=== PATIENT | female | born 1990 | race Caucasian/White ===

== ENCOUNTER → 2016-05-07 | Outpatient (CLI) | payer OTHER ==
[~2016-05-07] MED LIST: BCPILLS PO; DICL50TA3 PO; IBUP-1449 PO; METH4PAK PO; MULT-222 PO; SERT50TA PO
--- NOTE | 2016-05-07 13:06 | DIAGNOSTIC IMAGING REPORT ---
RIGHT LOWER EXTREMITY VENOUS DOPPLER CLINICAL HISTORY: Right leg pain. COMPARISON STUDY: No previous studies for comparison. TECHNIQUE: Sonography of the deep venous system of the right lower extremity was performed. Compression and augmentation were evaluated. FINDINGS: The common femoral, superficial femoral and popliteal veins were compressible. Augmentation was normal. Flow was shown within the deep calf vessels. IMPRESSION: No evidence of deep venous thrombus within the right lower extremity. Electronically signed by: Teo Palmer M.D. 05/07/2016 1:04 PM Dictated Date/Time: 05/07/2016 1:04 PM
--- NOTE | 2016-05-10 15:12 | CODING QUERY NO DIAGNOSIS ---
TREATMENT RENDERED WITHOUT A DIAGNOSIS To promote full compliance with coding requirements relating to patient care, physician participation is requested in all cases of compressor battery pellets uncertainty. Please assist us with providing a diagnosis/symptom for the test(s) below: A diagnosis/symptom was not documented on your Order. A valid diagnosis/symptom is required to bill all insurances. Please remember that we are unable to code a diagnosis of rule out, probable, possible, questionable, or suspected. Tests that require a diagnosis: DOS: 05/07/16 * RIGHT LEG DOPPLER US DIAGNOSIS: Provider Signature: Date: Thank you [facility] Information Management Once completed, please kindly fax back to [phone] For questions please call [phone]
== END | disposition home or self-care (01) ==
LOC: C.ULTR 12:26
PROVIDERS: ATTEND Preventive Medicine Occupational Medicine
DX: Z01.89 Encounter for other specified special examinations (principal)

== ENCOUNTER 2016-08-18 16:12 | Emergency (ER) | payer OTHER ==
[~2016-08-18] VITALS: Ht 165.1 cm; Wt 71.6 kg
[~2016-08-18 16:12] MED LIST changes: -BCPILLS PO; -DICL50TA3 PO; -METH4PAK PO
[2016-08-18 16:14] VITALS: TEMP 36.8; Ht 165.1 cm; Wt 71.6 kg
[2016-08-18] MEDS ORDERED: DICL50TA3 PO (16:37)
[2016-08-18] MEDS ORDERED: BCPILLS PO (16:38)
[2016-08-18] MEDS ORDERED: METH4PAK PO (17:13)
[2016-08-18 17:22] VITALS: BP 131/80; PULSE 72; O2SAT 98
--- NOTE | 2016-08-18 20:40 | EMERGENCY ROOM VISIT NOTE ---
History First contact with patient: 16:42 Chief Complaint: BACK PAIN Stated Complaint: BULGING DISC,NUMBNESS RT LEG,RT HIP PAIN,WC History of Present Illness The patient is a 26 year old female who presents to the Emergency Room with complaints of persistent lower back pain radiating down the right leg to her foot. The patient reports that she sustained a Worker's Compensation injury on 05/06/16. She has been under the management of Dr. Knox, [facility] and Dr. Marquis. The patient reports that she had an appointment scheduled with the pain clinic on 08/14, but was rescheduled for 08/28. She also had an appointment scheduled with Dr. Marquis 05/06. The patient reports that she had an independent medical evaluation (RACHEL) performed with Dr. Almeida as part of her Worker's Compensation evaluation. The patient reports that her case was closed on 08/11/16, and she was directed back to work for full duty without any restrictions. The patient reports progressively worsening symptoms at this point, and was told by her admitted attorneys to come to the emergency department. The patient and MRI performed at the time of injury. The patient denies any interval significant trauma to the back. She currently denies any right lower extremity weakness, foot drop, saddle anesthesias or bladder/bowel difficulties/ incontinence. She rates her discomfort a 6 out of 10. Review of Systems 10 system review was performed and was negative except for pertinent positives and negatives as indicated in history of present illness Past Medical/Surgical History Medical Problems: (1) Bleeding (2) Bronchitis (3) Headache in (4) History of urinary tract problem (5) possible rupture of membranes (6) spontaneous rupture of membranes at term (7) Stomach problems Surgical Problems: (1) H/O colonoscopy (2) History of wisdom tooth extraction Family History Cancer Heart disease Hypertension Kidney disease Kidney stones Social History Smoking Status: Never Smoker Alcohol Use: none Drug Use: none Marital Status: in relationship Occupation Status: employed Current/Historical Medications Scheduled Control Pills ( Control Pills), 1 TAB PO DAILY Diclofenac (Voltaren), 50 MG PO Q12 Methylprednisolone (Medrol Dosepak), 0 PO DAILY Allergies Coded Allergies: No Known Allergies (Unverified , 02/03/16) Physical Exam Vital Signs Date Time Temp Pulse Resp B/P Pulse Ox O2 Delivery O2 Flow Rate FiO2 08/18/16 17:22 72 18 131/80 98 Room Air 08/18/16 16:14 36.8 82 18 143/98 98 Room Air Pain Rating (0-10): 6.0 Physical Exam CONSTITUTIONAL: Healthy and well nourished. Alert and oriented X 3 with positive affect. Patient does not appear in any acute distress on exam. HEENT: Normocephalic, atraumatic. Pupils equal, round and reactive. NECK: Full active range of motion without discomfort. RESPIRATORY: Clear to auscultation bilaterally with no wheezing, crackles, rhonchi or stridor. CARDIOVASCULAR: Regular rate and rhythm with no murmurs, rubs or gallops. GASTROINTESTINAL: Bowel sounds present in all quadrants. Soft and nontender to palpation. MUSCULOSKELETAL: Examination shows tenderness to palpation through the right lower lumbar region, SI joint and sciatic notch. Negative logroll. Positive straight leg raise. Ankle plantar/dorsiflexion strength is 5 out of 5 and symmetric bilaterally. Pedal pulses are intact. INTEGUMENTARY: No rash or other significant dermatologic conditions noted. NEUROLOGIC: No focal neurologic deficits noted. Lower extremity deep tendon reflexes are 2+ and symmetric bilaterally. Medical Decision & Procedures ED Course Patient history and physical exam were performed. Nurse's notes were reviewed. I did review prior medical records, including the patient's office notes at the pain clinic on 07/22/16. On that visit, it was suggested that the patient undergo an L5-S1 intralaminar epidural steroid injection. As indicated in the history of present illness, she was scheduled this month for that injection. She also reports that Dr. Marquis was going to wait to see how she responded to the injection. Also as indicated in history of present illness, the patient was sent back to work without restrictions as a result of her RACHEL on 08/04/16. After explaining her difficulties with her admitted attorneys, she was sent to the emergency department. The patient is requesting another note for light duty. The patient was advised that I do not have any power to override her Worker's Compensation decision. I did try to call Dr. Knox, the patient's primary Worker's Compensation provider. He was not in the office today, nor was his nurse practitioner, Sarita Lees. I did leave a message for her to call the patient regarding further details of her RCAHEL, and other possible options for her case. I suspect the patient will have to work through her admitted attorneys to figure this out. In the meantime, the patient was provided a prescription for a Medrol Dosepak. The patient is currently taking Voltaren 50 mg twice a day, but reports that it gives her headaches. She is able to tolerate ibuprofen, and was therefore encouraged to alternate ibuprofen and Tylenol for pain. She refused any prescription analgesics. The patient was advised that she may need to follow-up with her PCP, pain clinic and Dr. Marquis until her Worker's Compensation situation is figured out. The patient voiced understanding of all discharge instructions, was happy with plan of care, and rated her discomfort a 4 out of 10 at the time of discharge. Impression Primary Impression: Lumbar pain Additional Impression: Work related injury Departure Information Dispostion Home / Self-Care Condition GOOD Prescriptions Methylprednisolone (MEDROL DOSEPAK) 4 Mg Yanick 0 PO DAILY, #1 PKT Prov: Chevy Banda PA 08/18/16 Referrals Jc Knox M.D. Forms HOME CARE DOCUMENTATION FORM, IMPORTANT VISIT INFORMATION Patient Instructions My [facility] [employer] Additional Instructions Ibuprofen 800 mg and/or Tylenol 1000 mg every 8 hours. You may also alternate these medications for more effective pain relief: Ibuprofen --4 HRS--> Tylenol --4 HRS--> ibuprofen --4 HRS--> Tylenol .... Stop the diclofenac for now. Take Medrol Dosepak as prescribed. Continue follow-up with your family doctor, pain clinic and Dr. Marquis until your admitted attorneys further evaluates your case. Problem Qualifiers Primary Impression: Lumbar pain Chronicity: chronic Back pain laterality: right Sciatica presence: with sciatica Sciatica laterality: sciatica of right side Qualified Codes: M54.41 - Lumbago with sciatica, right side; G89.29 - Other chronic pain
== END 2016-08-18 17:23 | disposition home or self-care (01) ==
LOC: C.EDB 16:16 → C.EDD 17:23
DX: M54.5 Low back pain (principal); Y99.0 Civilian activity done for income or pay; Z87.440 Personal history of urinary (tract) infections; Z87.19 Personal history of other diseases of the digestive system; Z79.899 Other long term (current) drug therapy

== ENCOUNTER 2017-02-08 11:44 | Emergency (ER) | payer OTHER ==
[~2017-02-08] VITALS: Ht 165.1 cm; Wt 68.7 kg
[~2017-02-08 11:44] MED LIST changes: +BCPILLS PO; +DICL50TA3 PO; -IBUP-1449 PO; -MULT-222 PO; -SERT50TA PO
[2017-02-08 11:46] VITALS: TEMP 36.9; Ht 165.1 cm; Wt 68.7 kg
[2017-02-08 12:47] LABS: URINE APPEARANCE CLOUDY (CLEAR); URINE BILIRUBIN NEG (NEG); URINE COLOR DK YELLOW; URINE EPITHELIAL CELL AUTO >30 /lpf (0-5); URINE NITRITE NEG (NEG); URINE PH 5.5 (4.5-7.5); URINE SPECIFIC GRAVITY 1.029 (1.000-1.030); UROBILINOGEN NEG (NEG); ZZUR CULT IF INDIC CLEAN CATCH YES
[2017-02-08 12:48] LABS: BASO % 0.3 %; BASO ABS # 0.02 K/uL (0-0.2); COMPLETE YES; HEMATOCRIT 38.5 % (37-47); IG% 0.3 %; LYMPH % 15.2 %; LYMPH ABS # 1.18 K/uL (1.2-3.4); MEAN CELL VOLUME 88.9 fL (80-100); MEAN CORPUSCULAR HEMOGLOBIN 29.8 pg (25-34); MEAN CORPUSCULAR HGB CONC 33.5 g/dl (32-36); MEAN PLATELET VOLUME 10.2 fL (7.4-10.4); NEUT % 68.2 %; PLATELET COUNT 217 K/uL (130-400); RED BLOOD COUNT 4.33 M/uL (4.2-5.4); WHITE BLOOD COUNT 7.76 K/uL (4.8-10.8)
[2017-02-08 12:51] LABS: PREG INTERNAL NEGATIVE QC NEG CLEAR BACKGROUND; PREG INTERNAL POSITIVE QC POS CONTROL LINE
[2017-02-08 12:52] LABS: MANUAL MICROSCOPIC REQUIRED? NO; REVIEW REQ? NO
[2017-02-08 13:07] LABS: BUN/CREATININE RATIO 12.9 (10-20); CALCIUM 8.9 mg/dl (8.5-10.1); CREATININE 0.78 mg/dl (0.60-1.20); POTASSIUM 3.2 mmol/L (3.5-5.1)
[2017-02-08] MEDS ORDERED: KETOROLAC TROMETHAMINE 30 MG/ML VIAL IV STA (13:08)
[2017-02-08 13:09] LABS: ALB/GLOB RATIO 0.9 (0.9-2)
--- NOTE | 2017-02-08 13:34 | DIAGNOSTIC IMAGING REPORT ---
ABDOMEN LIMITED (US) HISTORY: Pain. Nausea. upper abdominal pain (RUQ, LUQ). COMPARISON: None. FINDINGS: Pancreas: The pancreas demonstrates a normal echotexture. Liver: Unremarkable. Gallbladder: No gallbladder wall thickening. No gallstones. CBD: 4 mm Right kidney: No hydronephrosis. IMPRESSION: No significant abnormality identified within the within the right upper quadrant. The above report was generated using voice recognition software. It may contain grammatical, syntax or spelling errors. Electronically signed by: Steven Driscoll M.D. 02/08/2017 1:33 PM Dictated Date/Time: 02/08/2017 1:32 PM
--- NOTE | 2017-02-08 14:39 | EMERGENCY ROOM VISIT NOTE ---
History First contact with patient: 11:52 Chief Complaint: ILLNESS Stated Complaint: ENLARGED SPLEEN POSSIBLY MONO History of Present Illness The patient is a 27 year old female who presents to the Emergency Room with complaints of an enlarged spleen and possible mono. The patient was seen by urgent care earlier today and was advised that she had an enlarged spleen and liver on exam. While her mono test was negative, the examiner did suspect mono , as the patient has also had a sore throat, hoarseness of her voice, difficulty swallowing, and lymphadenopathy. The patient's boyfriend became concerned and encouraged the patient to be seen in the emergency department for further evaluation due to her symptoms. She is experiencing significant pain on the left side of her abdomen, worse with walking. She states the pain began yesterday, and has been worsening since. She did try DayQuil at one point due to the sore throat, however did not notice any improvement in her symptoms. The patient has not taken any anti-inflammatory or pain medication. She does feel that her abdomen is distended and hard. She denies any fever, chills, nausea, vomiting, otalgia, sinus congestion, headache, dyspnea, chest pain, cough, or other concerning symptoms. Review of Systems A complete 10 point review of systems was reviewed with the patient with pertinent positives and negatives as per history of present illness. All else were negative. Past Medical/Surgical History Medical Problems: (1) Bleeding (2) Bronchitis (3) Headache in (4) History of urinary tract problem (5) possible rupture of membranes (6) spontaneous rupture of membranes at term (7) Stomach problems Surgical Problems: (1) H/O colonoscopy (2) History of wisdom tooth extraction Family History Cancer Heart disease Hypertension Kidney disease Kidney stones Social History Smoking Status: Never Smoker Alcohol Use: none Drug Use: none Marital Status: in relationship Occupation Status: employed Current/Historical Medications Scheduled Control Pills ( Control Pills), 1 TAB PO DAILY Physical Exam Vital Signs Date Time Temp Pulse Resp B/P (MAP) Pulse Ox O2 Delivery O2 Flow Rate FiO2 02/08/17 14:49 75 16 118/76 98 02/08/17 13:55 65 16 130/70 98 Room Air 02/08/17 11:46 36.9 90 18 143/89 98 Room Air Physical Exam VITALS: Vitals are noted on the nurse's note and reviewed by myself. Vital signs stable. GENERAL: This is a 27-year-old female, in no acute distress, nondiaphoretic, well-developed well-nourished. SKIN: The skin was without rashes, erythema, edema, or bruising. There is no tenting of the skin. Capillary reflex less than 2 seconds. HEAD: Normocephalic atraumatic. EARS: External auditory canals clear, tympanic membranes pearly aggarwal without erythema or effusion bilaterally. EYES: Pupils equal round and reactive to light and accommodation. Conjunctivae without injection, sclerae without icterus. Extraocular movements intact. NOSE: Patent, turbinates without inflammation or discharge. No sinus tenderness. MOUTH: Mucous membranes moist. Tonsils are not enlarged. Pharynx with mild erythema and exudate. Uvula midline. Airway patent. Tongue does not deviate. NECK: Supple without nuchal rigidity. Cervical lymphadenopathy noted bilaterally in anterior and posterior chains. No thyromegaly. Cervical spine is nontender. No JVD. HEART: Regular rate and rhythm without murmurs gallops or rubs. LUNGS: Clear to auscultation bilaterally without wheezes, rales or rhonchi. No dullness to percussion. No retractions or accessory muscle use. ABDOMEN: Positive bowel sounds x 4. Normal tympanic percussion. There is tenderness and fullness of the left upper quadrant. The spleen does appear to be slightly enlarged on examination. Otherwise, the abdomen was soft, nontender , without masses or other organomegaly. Ochoa sign negative. No guarding or rebound tenderness. MUSCULOSKELETAL: No muscle atrophy, erythema, or edema noted. Full range of motion without joint tenderness in all extremities. No tenderness to palpation. Normal gait. Strength 5/5 throughout. NEURO: Patient was alert and oriented to person place and time. Normal sensation to light and sharp touch. Deep tendon reflexes 2+ throughout. No focal neurological deficits. Medical Decision & Procedures ER Provider Diagnostic Interpretation: CBC without leukocytosis, anemia, thrombocytopenia. CMP did show slightly decreased potassium of 3.2. Otherwise electrolytes were without abnormality. Renal and hepatic function appeared to be normal. Lipase was negative. Urinalysis does appear to be contaminated, however there were white blood cells , leuk esterase, ketones, and trace protein. I do suspect this is related to the patient's overall illness and slight dehydration. [place] screen was negative. Rapid strep screen was negative. U/S Limited: ABDOMEN LIMITED (US) HISTORY: Pain. Nausea. upper abdominal pain (RUQ, LUQ). COMPARISON: None. FINDINGS: Pancreas: The pancreas demonstrates a normal echotexture. Liver: Unremarkable. Gallbladder: No gallbladder wall thickening. No gallstones. CBD: 4 mm Right kidney: No hydronephrosis. IMPRESSION: No significant abnormality identified within the within the right upper quadrant. The above report was generated using voice recognition software. It may contain grammatical, syntax or spelling errors. Electronically signed by: Steven Driscoll M.D. 02/08/2017 1:33 PM Dictated Date/Time: 02/08/2017 1:32 PM *I did speak with Dr. Driscoll on the phone regarding the spleen. He states the spleen is 12 centimeters and prominent, however does not appear to be significantly enlarged or concerning. Laboratory Results 02/08/17 12:20 Red Blood Count 4.33, Mean Corpuscular Volume 88.9, Mean Corpuscular Hemoglobin 29.8, Mean Corpuscular Hemoglobin Concent 33.5, Mean Platelet Volume 10.2, Neutrophils (%) (Auto) 68.2, Lymphocytes (%) (Auto) 15.2, Monocytes (%) (Auto) 16.0, Eosinophils (%) (Auto) 0.0, Basophils (%) (Auto) 0.3, Neutrophils # (Auto ) 5.30, Lymphocytes # (Auto) 1.18, Monocytes # (Auto) 1.24, Eosinophils # (Auto ) 0.00, Basophils # (Auto) 0.02 02/08/17 12:20 Test 02/08/17 12:03 02/08/17 12:20 Urine Test NEG (NEG) White Blood Count 7.76 K/uL (4.8-10.8) Red Blood Count 4.33 M/uL (4.2-5.4) Hemoglobin 12.9 g/dL (12.0-16.0) Hematocrit 38.5 % (37-47) Mean Corpuscular Volume 88.9 fL (80-100) Mean Corpuscular Hemoglobin 29.8 pg (25-34) Mean Corpuscular Hemoglobin Concent 33.5 g/dl (32-36) Platelet Count 217 K/uL (130-400) Mean Platelet Volume 10.2 fL (7.4-10.4) Neutrophils (%) (Auto) 68.2 % Lymphocytes (%) (Auto) 15.2 % Monocytes (%) (Auto) 16.0 % Eosinophils (%) (Auto) 0.0 % Basophils (%) (Auto) 0.3 % Neutrophils # (Auto) 5.30 K/uL (1.4-6.5) Lymphocytes # (Auto) 1.18 K/uL (1.2-3.4) Monocytes # (Auto) 1.24 K/uL (0.11-0.59) Eosinophils # (Auto) 0.00 K/uL (0-0.5) Basophils # (Auto) 0.02 K/uL (0-0.2) RDW Standard Deviation 40.7 fL (36.4-46.3) RDW Coefficient of Variation 12.6 % (11.5-14.5) Immature Granulocyte % (Auto) 0.3 % Immature Granulocyte # (Auto) 0.02 K/uL (0.00-0.02) Urine Color DK YELLOW Urine Appearance CLOUDY (CLEAR) Urine pH 5.5 (4.5-7.5) Urine Specific [place] 1.029 (1.000-1.030) Urine Protein TRACE (NEG) Urine Glucose (UA) NEG (NEG) Urine Ketones 2+ (NEG) Urine Occult Blood NEG (NEG) Urine Nitrite NEG (NEG) Urine Bilirubin NEG (NEG) Urine Urobilinogen NEG (NEG) Urine Leukocyte Esterase SMALL (NEG) Urine WBC (Auto) 5-10 /hpf (0-5) Urine RBC (Auto) 0-4 /hpf (0-4) Urine Hyaline Casts (Auto) 5-10 /lpf (0-5) Urine Epithelial Cells (Auto) >30 /lpf (0-5) Urine Bacteria (Auto) 1+ (NEG) Anion Gap 5.0 mmol/L (3-11) Est Creatinine Clear Calc Drug Dose 107.4 ml/min Estimated GFR () 122.5 Estimated GFR (Non- 105.7 BUN/Creatinine Ratio 12.9 (10-20) Calcium Level 8.9 mg/dl (8.5-10.1) Total Bilirubin 0.6 mg/dl (0.2-1) Aspartate Amino Transf (AST/SGOT) 10 U/L (15-37) Alanine Aminotransferase (ALT/SGPT) 15 U/L (12-78) Alkaline Phosphatase 56 U/L (45-117) Total Protein 7.2 gm/dl (6.4-8.2) Albumin 3.5 gm/dl (3.4-5.0) Globulin 3.7 gm/dl (2.5-4.0) Albumin/Globulin Ratio 0.9 (0.9-2) Lipase 153 U/L (73-393) Monoscreen NEG (NEG) Medications Administered Medications (Trade) Dose Ordered Sig/Norris Route Start Time Stop Time Status Last Admin Dose Admin Ketorolac Tromethamine (Toradol Inj) 30 mg NOW STAT IV 02/08/17 13:08 02/08/17 13:09 DC 02/08/17 13:53 30 MG Medical Decision The patient presents today complaining of symptoms of mono. She has a sore throat, lymphadenopathy, and abdominal pain. Although her mono screen is negative, I do suspect mononucleosis as the cause of her symptoms. The patient does have an enlarged spleen on examination. Ultrasound does not reveal any concerning abnormalities. She was given 30mg Toradol via IV. I discussed the findings with the patient at bedside, discussed with her proper management of mononucleosis, including supportive care. I advised her that antibiotics do not treat this viral illness. The patient was in agreement with the assessment and plan. She was discharged home in good condition. Differential diagnosis: Mononucleosis, strep pharyngitis, upper respiratory infection, acute gastroenteritis, pancreatitis, cholecystitis, GERD, splenomegaly, splenic rupture, malignancy, and others. Medication Reconcilliation Current Medication List: was personally reviewed by me Blood Pressure Screening Patient's blood pressure: Normal blood pressure Impression Primary Impression: Sore throat Additional Impressions: Splenomegaly Lymphadenopathy of head and neck region Departure Information Dispostion Home / Self-Care Condition GOOD Referrals Tigre Yee M.D. (MEDICAL) (PCP) Patient Instructions ED Mononucleosis, My [facility] Additional Instructions You were seen in the emergency department for sore throat, enlarged lymph nodes , and splenomegaly. As discussed, although your mono screen was negative, it is possible that you have mononucleosis. This is viral in nature, and antibiotics will not treat. You should drink plenty of fluids and stay well-hydrated. You may consider anti -inflammatory medication such as ibuprofen to help with abdominal pain. Ibuprofen(Motrin, Advil) may be used for fever or pain. Use 600mg every six hours as needed. Take with food. Avoid using more than 2400mg in a 24 hour period. Do not use 2400mg per day for more than three consecutive days without physician direction. Prolonged inappropriate use can lead to stomach upset or ulcers. (AND/OR) Acetaminophen(Tylenol) may be used for fever or pain. Use 1000mg every six hours as needed. Avoid using more than 3000mg in a 24 hour period. Please avoid sharing sputum with others. Please avoid physical activity which may worsen your symptoms. Please follow up with your PCP in 2-3 days for recheck and further management of her disease. Return to the emergency department for worsening abdominal pain, bruising, swelling, nausea and vomiting, significant fever, or other concerning symptoms. Problem Qualifiers
[2017-02-08 14:49] VITALS: BP 118/76; PULSE 75; O2SAT 98
== END 2017-02-08 14:49 | disposition home or self-care (01) ==
LOC: C.EDB 11:46 → C.EDA 14:49
DX: J02.9 Acute pharyngitis, unspecified (principal); R16.1 Splenomegaly, not elsewhere classified; R59.1 Generalized enlarged lymph nodes; Z80.9 Family history of malignant neoplasm, unspecified; Z82.49 Family history of ischemic heart disease and other diseases of the circulatory system; Z84.1 Family history of disorders of kidney and ureter; Z79.3 Long term (current) use of hormonal contraceptives

== ENCOUNTER 2017-04-21 21:46 | Emergency (ER) | payer SELFPAY ==
[~2017-04-21] VITALS: Ht 165.1 cm; Wt 67.9 kg
[~2017-04-21 21:46] MED LIST changes: -DICL50TA3 PO
[2017-04-21 22:12] VITALS: TEMP 37.6; Ht 165.1 cm; Wt 67.9 kg
[2017-04-21] MEDS ORDERED: KETOROLAC TROMETHAMINE 30 MG/ML VIAL IV STA (22:56)
[2017-04-21] MEDS ORDERED: ONDANSETRON INJ 2 MG/ML 2 ML VIAL IV STA (22:56)
[2017-04-21] MEDS ORDERED: SODIUM CHLORIDE 0.9% 1000ML 1,000 ML IV STA (22:56)
--- NOTE | 2017-04-21 23:02 | EMERGENCY ROOM VISIT NOTE ---
History Report prepared by Delfina: Ivette Joyce Under the Supervision of: Dr. Turner Zabala M.D. First contact with patient: 22:45 Chief Complaint: ABDOMINAL PAIN Stated Complaint: BACK HURTS, VOMITTING ALL DAY, RIBS CRUSHING History of Present Illness The patient is a 27 year old female who presents to the Emergency Room with complaints of intermittent vomiting beginning this morning. The patient states that she has not been feeling well today and has had nausea and intermittent vomiting all day. She reports that she has not been able to keep anything down. She complains of generalized back pain, headache, shortness of breath with exertion, and squeezing bilateral rib pain. The patient denies any sore throat, diarrhea, urinary symptoms, sick contacts, and chest pain. She notes that her LNMP was last week and she has no history of abdominal surgery or daily medications. Source of History: patient Onset: this morning Position: other (global) Quality: other (vomiting) Timing: intermittent Associated Symptoms: + headache, + SOB, + nausea, + back pain, No sorethroat , No chest pain, No diarrhea, No urinary symptoms Note: Pt complains of rib pain. Review of Systems See HPI for pertinent positives & negatives. A total of 10 systems reviewed and were otherwise negative. Past Medical & Surgical Medical Problems: (1) Bleeding (2) Bronchitis (3) Headache in (4) History of urinary tract problem (5) possible rupture of membranes (6) spontaneous rupture of membranes at term (7) Stomach problems Surgical Problems: (1) H/O colonoscopy (2) History of wisdom tooth extraction Old medical records were reviewed. Nurse's notes were reviewed and I agree with. Family History Cancer Heart disease Hypertension Kidney disease Kidney stones Social History Smoking Status: Never Smoker Alcohol Use: none Drug Use: none Marital Status: in relationship Occupation Status: employed Current/Historical Medications Scheduled Control Pills ( Control Pills), 1 TAB PO DAILY Ondasetron Odt (Zofran Odt), 4 MG SL Q6H Scheduled PRN Oxycodone Immediate Rel Tab (Roxicodone Ir), 1-2 TAB PO Q4H PRN for Severe Pain Allergies Coded Allergies: No Known Allergies (Unverified , 04/21/17) Physical Exam Vital Signs Date Time Temp Pulse Resp B/P (MAP) Pulse Ox O2 Delivery O2 Flow Rate FiO2 04/22/17 02:17 84 20 131/74 99 04/22/17 00:51 91 18 134/78 98 Room Air 04/21/17 22:12 37.6 111 19 124/68 96 Room Air Physical Exam General: Non-ill appearing young female in no acute distress. HEENT: Normal cephalic atraumatic. Pupils are equal round and reactive to light. Extraocular movements are intact. Oropharynx is pink with moist mucous membranes. No swelling of the mouth lips or tongue. Neck: Supple with a midline trachea. No meningeal signs or stiffness, no JVD or bruits. No Stridor. Chest: Clear to auscultation bilaterally. No wheezes or rhonchi. No increased work of breathing. Heart: regular rate and rhythm. Abdomen: Soft, mildly tender in epigastric area, flank bilaterally nondistended without rebound guarding or rigidity. Extremities: No cyanosis clubbing or edema. No calf tenderness or assymetry Spine/Back. Non tender to palpation. No CVA tenderness Skin: Good turgor without rashes. Neurologic exam: Cranial nerves two through 12 are intact. Motor and sensation are intact and symmetrical throughout. Medical Decision & Procedures ER Provider Diagnostic Interpretation: CT results as stated below per my review and radiologist interpretation: CT ABDOMEN & PELVIS w/o Contrast: Nonspecific 6mm subpleural nodule at the lateral left lung base. Appendix is not visualized, but no inflammatory changes to suggest acute appendicitis. No bowel obstruction or inflammation. No renal or ureteral stone. No hydronephrosis in either kidney. Tiny fat-containing umbilical hernia. Decompressed bladder. Small mesenteric lymph nodes are nonspecific but may be reactive. Nonspecific borderline size of the spleen. Radiologist: Giorgi Curtis M.D. Laboratory Results 04/21/17 23:13 Red Blood Count 4.91, Mean Corpuscular Volume 90.6, Mean Corpuscular Hemoglobin 30.8, Mean Corpuscular Hemoglobin Concent 33.9, Mean Platelet Volume 10.4, Neutrophils (%) (Auto) 86.3, Lymphocytes (%) (Auto) 5.4, Monocytes (%) (Auto) 7.3, Eosinophils (%) (Auto) 0.4, Basophils (%) (Auto) 0.2, Neutrophils # (Auto) 7.33, Lymphocytes # (Auto) 0.46, Monocytes # (Auto) 0.62, Eosinophils # (Auto) 0.03, Basophils # (Auto) 0.02 04/21/17 23:13 Test 04/21/17 23:13 04/21/17 23:37 White Blood Count 8.49 K/uL (4.8-10.8) Red Blood Count 4.91 M/uL (4.2-5.4) Hemoglobin 15.1 g/dL (12.0-16.0) Hematocrit 44.5 % (37-47) Mean Corpuscular Volume 90.6 fL (80-100) Mean Corpuscular Hemoglobin 30.8 pg (25-34) Mean Corpuscular Hemoglobin Concent 33.9 g/dl (32-36) Platelet Count 201 K/uL (130-400) Mean Platelet Volume 10.4 fL (7.4-10.4) Neutrophils (%) (Auto) 86.3 % Lymphocytes (%) (Auto) 5.4 % Monocytes (%) (Auto) 7.3 % Eosinophils (%) (Auto) 0.4 % Basophils (%) (Auto) 0.2 % Neutrophils # (Auto) 7.33 K/uL (1.4-6.5) Lymphocytes # (Auto) 0.46 K/uL (1.2-3.4) Monocytes # (Auto) 0.62 K/uL (0.11-0.59) Eosinophils # (Auto) 0.03 K/uL (0-0.5) Basophils # (Auto) 0.02 K/uL (0-0.2) RDW Standard Deviation 41.2 fL (36.4-46.3) RDW Coefficient of Variation 12.3 % (11.5-14.5) Immature Granulocyte % (Auto) 0.4 % Immature Granulocyte # (Auto) 0.03 K/uL (0.00-0.02) Anion Gap 8.0 mmol/L (3-11) Est Creatinine Clear Calc Drug Dose 99.2 ml/min Estimated GFR () 122.5 Estimated GFR (Non- 105.7 BUN/Creatinine Ratio 19.7 (10-20) Calcium Level 8.7 mg/dl (8.5-10.1) Total Bilirubin 0.6 mg/dl (0.2-1) Direct Bilirubin 0.1 mg/dl (0-0.2) Aspartate Amino Transf (AST/SGOT) 10 U/L (15-37) Alanine Aminotransferase (ALT/SGPT) 18 U/L (12-78) Alkaline Phosphatase 66 U/L (45-117) Total Protein 7.3 gm/dl (6.4-8.2) Albumin 3.8 gm/dl (3.4-5.0) Lipase 134 U/L (73-393) Human Chorionic Gonadotropin, Qual NEG (NEG) Urine Color YELLOW Urine Appearance SL CLOUDY (CLEAR) Urine pH 5.5 (4.5-7.5) Urine Specific [place]ridge >= 1.030 (1.000-1.030) Urine Protein NEG (NEG) Urine Glucose (UA) NEG (NEG) Urine Ketones NEG (NEG) Urine Occult Blood NEG (NEG) Urine Nitrite NEG (NEG) Urine Bilirubin NEG (NEG) Urine Urobilinogen NEG (NEG) Urine Leukocyte Esterase NEG (NEG) Laboratory studies as stated above per my review. Medications Administered Medications (Trade) Dose Ordered Sig/Norris Route Start Time Stop Time Status Last Admin Dose Admin Sodium Chloride 1,000 ml @ 999 mls/hr Q1H1M STAT IV 04/21/17 22:56 04/21/17 23:56 DC 04/21/17 23:12 999 MLS/HR Ondansetron HCl (Zofran Inj) 4 mg NOW STAT IV 04/21/17 22:56 04/21/17 22:57 DC 04/21/17 23:11 4 MG Ketorolac Tromethamine (Toradol Inj) 30 mg NOW STAT IV 04/21/17 22:56 04/21/17 22:57 DC 04/21/17 23:12 30 MG Oxycodone HCl (Roxicodone Immediate Rel 5MG Home Pack) 1 homepack UD ONCE PO 04/22/17 02:00 04/22/17 02:01 DC 04/22/17 02:12 1 HOMEPACK Ondansetron HCl (ZOFRAN ODT 4MG Home Pack) 1 homepack UD ONCE PO 04/22/17 02:00 04/22/17 02:01 DC 04/22/17 02:12 1 HOMEPACK ED Course 2245: Past medical records reviewed. The patient was evaluated in room C1, and a complete history and physical examination were performed. 2256: Toradol Inj 30mg IV, Zofran Inj 4mg IV, Sodium Chloride 1000 ml @ 999 mls/ hr IV. 2342: I reevaluated the patient. The Toradol did not relieve her pain. 0158 : Upon reevaluation, the patient is doing well. I discussed the results and treatment plan with her. She verbalized agreement of the treatment plan. The patient was discharged home. Medical Decision Differentials include, but are not limited to; viral illness, gastroenteritis, , liver disease, electrolyte or metabolic abnormality. This patient comes in as described above. She's had some nausea she has a pain in her bilateral upper abdomen and in the back bilaterally as well. No shortness breath or pleurisy. No trauma. No dysuria or hematuria. She denies that she is . IV access established and she was hydrated with IV normal saline. She was given Toradol 30 mg IV as well as Zofran 4 mg IV. This helped the nausea she still had some pain. She's had no white count or fever to suggest infection. She's not anemic. Her test is negative. Urinalysis is unremarkable and does not suggest UTI. She has nothing to suggest liver or gallbladder or pancreas disease. Her kidney function is normal. I did do a CAT scan. It was unremarkable for anything acute she does have some mesenteric adenitis and this could be causing her pain and may be more musculoskeletal or GI related. There is no evidence of bowel obstruction or bacterial infection. She'll rest and drink plenty of fluids. Use ibuprofen and or Tylenol for pain. For breakthrough pain she can use OxyIR 5 mg, one or 2 pills her for 6 hours she is 1 ischemic her drowsy and do not take before drinking, driving, working. For nausea May use Zofran. Return if :increasing pain, worsening of symptoms, fever or chills, any new problems concerns. They' re happy with the plan and she was discharged to home. Medication Reconcilliation Current Medication List: was personally reviewed by me Blood Pressure Screening Patient's blood pressure: Normal blood pressure Blood pressure disposition: Did not require urgent referral Impression Primary Impression: Nausea Additional Impressions: Back pain Mesenteric adenitis Scribe Attestation The scribe's documentation has been prepared under my direction and personally reviewed by me in its entirety. I confirm that the note above accurately reflects all work, treatment, procedures, and medical decision making performed by me. Departure Information Dispostion Home / Self-Care Prescriptions Ondasetron Odt (ZOFRAN ODT) 4 Mg Tab 4 MG SL Q6H for Nausea, #10 TAB Prov: Turner Zabala M.D. 04/22/17 Oxycodone Immediate Rel Tab (ROXICODONE IR) 5 Mg Tab 1-2 TAB PO Q4H Y for Severe Pain, #10 TAB Prov: Turner Zabala M.D. 04/22/17 Referrals Tigre Yee M.D. (MEDICAL) (PCP) Patient Instructions My [facility] Additional Instructions Rest. Drink plenty of fluids. Mild diet. For nausea, May use Zofran 4 mg every 6 hours if needed For pain, may use [id number] acetaminophen/Tylenol and/or ibuprofen. Do not exceed the [id number] dosing regimen For more severe pain, OxyIR 5 mg- 1-2 pills every 4-6 hours as needed OxyIR may make you drowsy and do not take before drinking, driving, working Return if: Increasing pain, worsening symptoms, fever or chills, any new problems or concerns Follow-up with your doctor this week for recheck Problem Qualifiers
[2017-04-21 23:39] LABS: BASO % 0.2 %; BASO ABS # 0.02 K/uL (0-0.2); EOS % 0.4 %; EOS ABS # 0.03 K/uL (0-0.5); HEMATOCRIT 44.5 % (37-47); HEMOGLOBIN 15.1 g/dL (12.0-16.0); IG# 0.03 K/uL (0.00-0.02); LYMPH % 5.4 %; LYMPH ABS # 0.46 K/uL (1.2-3.4); MEAN CELL VOLUME 90.6 fL (80-100); MEAN CORPUSCULAR HEMOGLOBIN 30.8 pg (25-34); MEAN CORPUSCULAR HGB CONC 33.9 g/dl (32-36); MEAN PLATELET VOLUME 10.4 fL (7.4-10.4); MONO % 7.3 %; MONO ABS # 0.62 K/uL (0.11-0.59); NEUT % 86.3 %; NEUT ABS # 7.33 K/uL (1.4-6.5); PLATELET COUNT 201 K/uL (130-400); RED CELL DISTRIBUTION WIDTH CV 12.3 % (11.5-14.5); RED CELL DISTRIBUTION WIDTH SD 41.2 fL (36.4-46.3); WHITE BLOOD COUNT 8.49 K/uL (4.8-10.8)
[2017-04-21 23:57] LABS: ALBUMIN 3.8 gm/dl (3.4-5.0); CALCIUM 8.7 mg/dl (8.5-10.1); CREATININE 0.78 mg/dl (0.60-1.20); POTASSIUM 3.2 mmol/L (3.5-5.1)
[2017-04-22] LABS: TOTAL PROTEIN 7.3 gm/dl (6.4-8.2)
[2017-04-22] MEDS ORDERED: ONDA4TAB10 SL (01:55)
[2017-04-22] MEDS ORDERED: OXYC1TAB3 PO (01:55)
[2017-04-22] MEDS ORDERED: ONDANSETRON HOME PACK 4MG OD TAB PO ONE (02:00)
[2017-04-22] MEDS ORDERED: OXYCODONE IR HOME PACK PO ONE (02:00)
[2017-04-22 02:17] VITALS: BP 131/74; PULSE 84; O2SAT 99
--- NOTE | 2017-04-22 07:37 | DIAGNOSTIC IMAGING REPORT ---
CT SCAN OF THE ABDOMEN AND PELVIS WITHOUT IV CONTRAST CLINICAL HISTORY: Epigastric abdominal pain. Back pain. COMPARISON STUDY: Abdominal ultrasound dated 02/08/2017. TECHNIQUE: CT scan of the abdomen and pelvis is performed from the lung bases to the proximal femora. Images are reviewed in the axial, sagittal, and coronal planes. IV contrast was not administered for this examination as per the referring clinician. Note that the examination was performed in suboptimal fashion without oral and IV contrast. A dose lowering technique was utilized adhering to the principles of ALARA. CT DOSE: 623.42 mGy.cm FINDINGS: Lung bases: The heart is normal in size and without pericardial effusion. A 6 cm left lower lobe nodule is seen on image #53. The lung bases are otherwise clear. Liver: The unenhanced liver is normal in size, contour, and attenuation. There is no intrahepatic biliary ductal dilatation. Gallbladder: Unremarkable. Spleen: The spleen is mildly enlarged, measuring 13.5 cm in length. Pancreas: Unremarkable. Adrenal glands: Unremarkable. Kidneys: The unenhanced kidneys are normal in size and without hydronephrosis. Mild medullary nephrocalcinosis is questioned. There are no renal calculi identified. There is no evidence of contour deforming renal mass lesion. Abdominal vasculature: The abdominal aorta is normal in course and caliber. Bowel: The small bowel and colon are normal in course and caliber. The appendix is normal as visualized. Peritoneum: There is no intraperitoneal free air or abdominal ascites. There is a fat-containing umbilical hernia. Lymphadenopathy: None. Pelvic viscera: The bladder, uterus, and adnexa are normal as visualized. There are bilateral ovarian follicles. Trace free fluid is noted in the cul-de-sac. Skeletal structures: No lytic or blastic lesions are seen. Sclerotic change is noted in the sacroiliac joints. IMPRESSION: 1. There are no acute infectious or inflammatory findings in the abdomen or pelvis. 2. There is trace free fluid in the cul-de-sac, likely within physiologic limits. 3. Mild splenomegaly. 4. Question mild bilateral medullary nephrocalcinosis. 5. A 6 cm left lower lobe pleural-based nodule is of low suspicion and of doubtful significance in this age group. Electronically signed by: Tarik Calles M.D. 04/22/2017 7:35 AM Dictated Date/Time: 04/22/2017 7:26 AM
== END 2017-04-22 02:18 | disposition home or self-care (01) ==
LOC: C.EDB 21:47 → C.EDC 04-22 02:18
DX: R11.2 Nausea with vomiting, unspecified (principal); M54.9 Dorsalgia, unspecified; I88.0 Nonspecific mesenteric lymphadenitis; R06.02 Shortness of breath; Z98.818 Other dental procedure status; Z98.890 Other specified postprocedural states; Z82.49 Family history of ischemic heart disease and other diseases of the circulatory system; Z84.1 Family history of disorders of kidney and ureter

== ENCOUNTER 2017-12-02 01:01 | Emergency (ER) | payer OTHER ==
[~2017-12-02] VITALS: Ht 165.1 cm; Wt 68.1 kg
[2017-12-02 01:04] VITALS: TEMP 36.9; Ht 165.1 cm; Wt 68.1 kg
[2017-12-02] MEDS ORDERED: KETOROLAC TROMETHAMINE 60 MG/2 ML VIAL IM STA (02:07)
--- NOTE | 2017-12-02 02:08 | EMERGENCY ROOM VISIT NOTE ---
History Report prepared by Delfina: Casa aRm Under the Supervision of: Dr. Tabitha Mcmillan D.O. First contact with patient: 01:16 Chief Complaint: NECK PAIN Stated Complaint: STIFF NECK/SHOULDER PAIN X 3DYS,MINOR HEADACHE History of Present Illness The patient is a 27 year old female who presents to the Emergency Room with complaints of constant neck pain beginning four days ago. The patient states that she first noticed her neck pain four days ago when she was at work. She notes that she was not feeling ill and did not lift anything heavy when her neck pain began. She reports that her neck feels stiff. The patient states that her pain worsens when she turns her neck. She notes that her neck has been swollen in the mornings. She also complains of shoulder pain, nausea, and of a mild headache. She reports that she feels nauseous because she has not been eating much. She denies any fever, chills, vomiting, and leg cramping/swelling. The patient states that she has been using ibuprofen, Advil, and heat with no relief of her symptoms. She notes that she has a history of a lower back injury but does not have any other problems. She reports that she does not believe that she is . The patient states that she drove herself to the emergency department today. Source of History: patient Onset: four days ago Position: neck Quality: other (stiffness) Timing: constant Modifying Factors (Worsening): other (turning her neck) Associated Symptoms: + headache, + nausea, No fevers, No chills, No vomiting Note: The patient also complains of a swollen neck and shoulder pain. She also denies any leg cramping/swelling. Review of Systems See HPI for pertinent positives & negatives. A total of 10 systems reviewed and were otherwise negative. Past Medical & Surgical Medical Problems: (1) Bleeding (2) Bronchitis (3) Headache in (4) History of urinary tract problem (5) possible rupture of membranes (6) spontaneous rupture of membranes at term (7) Stomach problems Surgical Problems: (1) H/O colonoscopy (2) History of wisdom tooth extraction Family History Cancer Heart disease Hypertension Kidney disease Kidney stones Lung disease Social History Smoking Status: Never Smoker Alcohol Use: none Drug Use: none Marital Status: in relationship Housing Status: lives with family Occupation Status: employed Current/Historical Medications Scheduled Control Pills ( Control Pills), 1 TAB PO DAILY Allergies Coded Allergies: No Known Allergies (Unverified , 12/02/17) Physical Exam Vital Signs Date Time Temp Pulse Resp B/P (MAP) Pulse Ox O2 Delivery O2 Flow Rate FiO2 12/02/17 02:58 55 18 129/80 98 12/02/17 01:04 36.9 62 20 128/91 98 Room Air Physical Exam HEENT: Head - normocephalic and atraumatic Pupils are equal, round, and reactive to light. Extraocular eye muscles are intact, and sclera are anicteric. Nose - moist nasal mucosa without discharge. Mouth - moist buccal mucosa. Oropharynx is nonerythematous and there is no tonsillar exudate or edema noted. Neck: Supple; no JVD, nuchal rigidity, cervical lymphadenopathy, or auscultated bruits. Moderate spasm to bilateral trapezius muscles and cervical paraspinous muscles. Heart: Regular rate and rhythm. There is a normal S1 and S2 with no murmurs, clicks, or gallops appreciated. Lungs: Clear to auscultation bilaterally with no wheezes, rales, or rhonchi. Abdomen: Soft, completely nontender, nondistended, with good bowel sounds. There are no palpable pulsatile masses or hepatosplenomegaly. There is no guarding, rigidity, or rebound noted. Extremities: No evidence of cyanosis, clubbing, or edema. There are easily palpable peripheral pulses. Skin: warm and dry with good turgor and no rashes. Medical Decision & Procedures Medications Administered Medications (Trade) Dose Ordered Sig/Norris Route Start Time Stop Time Status Last Admin Dose Admin Ketorolac Tromethamine (Toradol Inj) 60 mg NOW STAT IM 12/02/17 02:07 12/02/17 02:08 DC 12/02/17 02:13 60 MG Procedure Medications Administered: Toradol Inj 60mg IM. ED Course 0200: Past medical records reviewed. The patient was evaluated in room B6. A complete history and physical exam was performed. 0207: Toradol Inj 60mg IM 0247: Upon reevaluation, the patient feels much better. She has increased ROM in her neck. I discussed findings and results with her. She verbalized agreement of the treatment plan. The patient was discharged home. Medical Decision The patient is a 27 year old female who presents to the Emergency Room with complaints of constant neck pain beginning four days ago. Differential diagnoses include: meningitis, torticollis, trapezius spasm, acute cervical disc injury, and cervical spine strain. Over the past couple of days, the patient has developed decreased range of motion in the neck and significant muscle spasm to the cervical spine or paraspinous muscles as well as the trapezius muscles. She has been applying heat with no relief. After receiving IM Toradol, the patient had moderate relief of her discomfort. We did talk about the option of a muscle relaxer, however the patient will use NSAIDs. She will be off work the next 2 days and was encouraged to avoid significant strenuous activity or heavy lifting over the next 3 or 4 days. Once the patient is feeling somewhat better, I recommended that she go for a massage of her head neck and shoulders. This may help with the muscle spasm. She was told return to the emergency department if she developed any fevers or chills or worsening symptoms. Medication Reconcilliation Current Medication List: was personally reviewed by me Blood Pressure Screening Patient's blood pressure: Normal blood pressure Blood pressure disposition: Did not require urgent referral Impression Primary Impression: Trapezius muscle spasm Additional Impression: Spasm of cervical paraspinous muscle Scribe Attestation The scribe's documentation has been prepared under my direction and personally reviewed by me in its entirety. I confirm that the note above accurately reflects all work, treatment, procedures, and medical decision making performed by me. Departure Information Dispostion Home / Self-Care Referrals Tigre Yee M.D. (MEDICAL) (PCP) Forms HOME CARE DOCUMENTATION FORM, IMPORTANT VISIT INFORMATION, WORK / SCHOOL INSTRUCTIONS Patient Instructions My [facility] Additional Instructions Rest. apply heat to the neck and shoulders. Ibuprofen - 800mg every 6-8 hours with food for pain Get a massage to help with muscle knots and spasm No heavy lifting for next 2-3 days Problem Qualifiers
[2017-12-02 02:58] VITALS: BP 129/80; PULSE 55; O2SAT 98
== END 2017-12-02 02:55 | disposition home or self-care (01) ==
LOC: C.EDB 01:02
DX: M62.838 Other muscle spasm (principal); Z87.440 Personal history of urinary (tract) infections; Z80.9 Family history of malignant neoplasm, unspecified; Z82.49 Family history of ischemic heart disease and other diseases of the circulatory system; Z84.1 Family history of disorders of kidney and ureter; Z83.6 Family history of other diseases of the respiratory system; Z79.3 Long term (current) use of hormonal contraceptives

== ENCOUNTER 2019-10-04 16:28 | Observation (INO) ==
--- OUTSIDE RECORDS SUMMARY | 2019-10-04 16:32 | External Medical Summary | Continuity of Care Document ---
:1990 Author Name Ricky Cope, Provider Address Unavailable Unavailable , Care Team Providers Name Role Phone Nelia Tinoco PA-C Unavailable [email or web address] Cope Unavailable [email or web address] KATELIN VALLEJO M.D., V Unavailable Unavailab le Unavailable Unavailable Unavailable Problems Encounter for initial prescription of contraceptives (V25.02 ) (Z30.019) Dysuria (788.1) (R30.0) Encounter for routine pelvic examination (V72.31) (Z01.419) Eczema (692.9) (L30.9) Lower back pain (724.2) (M54.5) Allergies and Adverse Reactions No Known Drug Allergies (Allergy) Medications Sprintec 28 0.25-35 MG-MCG Oral Tablet; Take 1 tablet daily CASSIDY Tinoco Start: 02-Mar-2012 Quantity: 1 28 EA Disp Pack Refills: 0 Fluocinonide 0.05 % External Cream; APPL Y SPARINGLY TO AFFECTED AREA(S) TWICE DAILY NEEDED. CASSIDY Tinoco Start: 24-Dec-2012 Quantity: 1 60 GM Tube Refills: 0 Procedures History of Dental Surgery Status: Comple [facility] Encounter for initial prescription of contraceptives Immunizations Influenza Comments:no fall 1 Family History Unknown Family Member Family history of Hypertension (V17.49) Status: Active Comments: Family History Family history of Breast Cancer (V16.3) Status: Active Comments: Family History Mother Family history of Breast Cancer (V16.3) Status: Active Social History - Smoking Status Never smoked tobacco Plan of Treatment Planned Observations Planned Goals not documented Results No Known Results Results not documented
[2019-10-04] MEDS ORDERED: ACETAMINOPHEN 325 MG TAB PO PRN (16:50)
[2019-10-04 17:17] LABS: Basophils # (auto) 0.02 K/uL (0-0.2); Basophils % (auto) 0.2 %; Eosinophils # (auto) 0.13 K/uL (0-0.5); Eosinophils % (auto) 1.4 %; Hematocrit (blood only) 32.6 % (37-47); Hemoglobin 10.5 g/dL (12.0-16.0); Immature Granulocytes # (auto) 0.11 K/uL (0.00-0.02); Immature Granulocytes % (auto) 1.2 %; Lymphocytes # (auto) 1.49 K/uL (1.2-3.4); Mean Corpuscular Hemoglobin 28.3 pg (25-34); Mean Corpuscular Hgb Conc 32.2 g/dL (32-36); Mean Corpuscular Volume 87.9 fL (80-100); Mean Platelet Volume 11.4 fL (7.4-10.4); Monocytes # (auto) 0.88 K/uL (0.11-0.59); Monocytes % (auto) 9.4 %; Neutrophils % (auto) 71.8 %; Platelet Count 200 K/uL (130-400); RDW Coefficient of Variation 14.6 % (11.5-14.5); RDW Standard Deviation 46.6 fL (36.4-46.3); Red Blood Count 3.71 M/uL (4.2-5.4); White Blood Count 9.33 K/uL (4.8-10.8)
[2019-10-04] MEDS ORDERED: LACTATED RINGER'S 1,000 ML IV ONE (17:28)
[2019-10-04] MEDS ORDERED: BETAMETH SOD PHOS/ACETATE IA 6 MG/ML IM STA (17:28)
[2019-10-04] MEDS ORDERED: NIFEdipine 10 MG CAP PO STA (17:29)
--- NOTE | 2019-10-04 17:29 | History & Physical Report ---
Date of Service October 04, 2019 Assessment & Plan (1) Cramping affecting , antepartum: 29 yo at 36.2 wks with cramping, DFM, cervical change and found to be in breech presentation Elevated BP's asymptomatic: will order U/A, CMP, repeat Plan to Observe, monitor, IVF bolus, Procardia PO, [place] for FLM and reevaluate All questions were answered (2) Threatened premature labor affecting , less than 37 weeks in third trimester, antepartum: (3) Labor presentation, breech: (4) Decreased movement: History of Present Illness Chief Complaint: decreased movement and cramping Primary Care Provider: Tigre Yee MD Patient is a 29 yo at 36.2 wks who has been feeling lower abdominal pelvic cramping and pressure for the last 3 days She noted DFM this morning, 2 FM's only and then tried to eat spicy food ( which usually wakes the baby up) and felt 4 FM in 2 hours Baby is normally very active, moves many times in an hour No LOF/VB She has been at home busy with her 3.5 yo baby, not working She has been drinking a lot, 4-5 bottle of water ( 28 oz each) Her has been uncomplicated Allergies Allergy/AdvReac Type Severity Reaction Status Date / Time No Known Allergies Allergy Unverified 12/02/17 02:25 Home Medications Home Medications Medication Instructions Recorded Confirmed Type PNV cmb#95-ferrous fumarate-FA 1 tab PO DAILY 10/04/19 10/04/19 History [] magnesium 240 mg PO DAILY 10/04/19 10/04/19 History Patient History Medical History Lumbar disc disease with radiculopathy (Chronic) Ulcer Ulcer removal of left lower lip Surgical History H/O colonoscopy (Resolved) History of wisdom tooth extraction (Resolved) Social History Preferred Language: Sami Communication Ability: Effective Assembler Chassis Required: No Beliefs That Will Affect Care: None marital status: Single Current Living Situation: Significant Other Current Living Situation Comment: Lives with Adan and son Other Information That Helps Us Care for You: No Feels Safe at Home: Yes Safety Concerns: Feels Safe At This Time Smoking Status: Never smoker Hx Alcohol Use: No Hx Substance Use: No OB History FT in 2016 Review of Systems All systems reviewed & are unremarkable except as noted in HPI & below Physical Exam Constitutional: WD/WN, vitals as above well developed and well nourished Comfortable Gastrointestinal (Abdomen): normal bowel sounds, soft, nontender, no he patosplenomegaly (gravid) Genitourinary: normal external appearance Manual OB Exam: + cervical dilation 2 cm, + cervical effacement 50% and + station (breech) -2 OB Exam Monitor Tracing: + external FHT monitor used and + category I bed side US: Breech, MAUREEN 12.5 cm, placenta anterior, multiple breathing episodes seen, 1 gorss BM and 2 extremity movements Results & Data Vital Signs (Past 12 Hours) Vital Signs Temp Pulse Resp BP 10/04/19 17:18 96 H 132/81 10/04/19 17:12 94 H 18 139/91 10/04/19 17:08 94 H 139/91 10/04/19 16:58 104 H 130/95 10/04/19 16:48 95 H 143/89 H 10/04/19 16:37 36.7 C 95 H 20 153/89 H
[2019-10-04 17:34] LABS: Albumin Level 2.5 gm/dl (3.4-5.0); BUN Creatinine Ratio 7.6 (10-20); Creatinine Clr Calc Pharmacy 138.4 ml/min; Est GFR (African American) 140.3; Est GFR (Non-African American) 121.1; Potassium 3.6 mmol/L (3.5-5.1)
[2019-10-04 17:37] LABS: Albumin Globulin Ratio 0.7 (0.9-2); Bilirubin,Total 0.2 mg/dl (0.2-1); Globulin 3.6 gm/dl (2.5-4.0); Total Protein 6.1 gm/dl (6.4-8.2)
[2019-10-04 17:47] LABS: Appearance Urine Clear (Clear); Bilirubin Urine Negative (Negative); Blood Urine Negative (Negative); Color Urine Yellow; Glucose Urine UA Negative (Negative); Ketones Urine Negative (Negative); Leukocyte Esterase Urine Trace (Negative); Nitrite Urine Negative (Negative); Protein Urine Negative (Negative); Specific Gravity Urine 1.006 (1.000-1.030); Urobilinogen Urine Negative (Negative); pH Urine 6.5 (4.5-7.5)
[2019-10-04 18:22] LABS: Bacteria Urine Automated 1+ (Negative); Cast Urine Automated 0 /lpf (0-5); Epithelial Cell Urine Auto >30 /lpf (0-5); RBC Urine Automated 0-4 /hpf (0-4)
[2019-10-04] MEDS ORDERED: ONDANSETRON INJ 2 MG/ML 2 ML VIAL IV PRN (19:23)
--- NOTE | 2019-10-04 19:28 | Obstetrical Progress Note ---
Date of Service October 04, 2019 Subjective Patient is reevaluated She started to feel FM's many times since my last visit to her. She did not count but they were many like before Still feels crampy, like menstrual cramps with nausea Started to have mild CHRIS after she took Procardia No LOF/VB Lab Results 10/04/19 10/04/19 10/04/19 Range/Units 17:03 17:03 Unknown WBC 9.33 (4.8-10.8) K/uL RBC 3.71 L (4.2-5.4) M/uL Hgb 10.5 L (12.0-16.0) g/dL Hct 32.6 L (37-47) % MCV 87.9 (80-100) fL MCH 28.3 (25-34) pg MCHC 32.2 (32-36) g/dL RDW Std Deviation 46.6 H (36.4-46.3) fL RDW Coeff of Claudia 14.6 H (11.5-14.5) % Plt Count 200 (130-400) K/uL MPV 11.4 H (7.4-10.4) fL Immature Gran % (Auto) 1.2 % Neut % (Auto) 71.8 % Lymph % (Auto) 16.0 % [place] % (Auto) 9.4 % Eos % (Auto) 1.4 % Baso % (Auto) 0.2 % Neut # (Auto) 6.70 H (1.4-6.5) K/uL Lymph # (Auto) 1.49 (1.2-3.4) K/uL [place] # (Auto) 0.88 H (0.11-0.59) K/uL Eos # (Auto) 0.13 (0-0.5) K/uL Baso # (Auto) 0.02 (0-0.2) K/uL Immature Gran # (Auto) 0.11 H (0.00-0.02) K/uL Sodium 138 (136-145) mmol/L Potassium 3.6 (3.5-5.1) mmol/L Chloride 109 H (98-107) mmol/L Carbon Dioxide 23 (21-32) mmol/L Anion Gap 7.0 (3-11) BUN 5 L (7-18) mg/dl Creatinine 0.66 (0.6-1.2) mg/dl Est Cr Clr Drug Dosing 138.4 ml/min Est GFR ( Amer) 140.3 Est GFR (Non-Af Amer) 121.1 BUN/Creatinine Ratio 7.6 L (10-20) Glucose 96 (70-99) mg/dl Calcium 9.0 (8.5-10.1) mg/dl Total Bilirubin 0.2 (0.2-1) mg/dl AST 17 (15-37) U/L ALT 19 (12-78) U/L Alkaline Phosphatase 157 H (45-117) U/L Total Protein 6.1 L (6.4-8.2) gm/dl Albumin 2.5 L (3.4-5.0) gm/dl Globulin 3.6 (2.5-4.0) gm/dl Albumin/Globulin Ratio 0.7 L (0.9-2) Urine Color Yellow Urine Appearance Clear (Clear) Urine pH 6.5 (4.5-7.5) Ur Specific [place] 1.006 (1.000-1.030) Urine Protein Negative (Negative) Urine Glucose (UA) Negative (Negative) Urine Ketones Negative (Negative) Urine Blood Negative (Negative) Urine Nitrite Negative (Negative) Urine Bilirubin Negative (Negative) Urine Urobilinogen Negative (Negative) Ur Leukocyte Esterase Trace H (Negative) Urine WBC (Auto) 1-5 (0-5) /hpf Urine RBC (Auto) 0-4 (0-4) /hpf U Hyaline Cast (Auto) 0 (0-5) /lpf U Epithel Cells (Auto) >30 H (0-5) /lpf Urine Bacteria (Auto) 1+ H (Negative) FHR 140's with good accels, no decels and moderate variability, audible FM's + Abd soft, no ctxs felt wehn she felt crampy VE: cervix good 2 cm/ 60%, thinner than before, -2, minimal but no significant change, GBS collected Discussed labs, Tylenol for CHRIS's, continue with Procardia and monitoring overnight until tomorrow morning and then plan She agreed All questions were answered Results & Data ([facility]) Vital Signs (Past 12 Hours) Vital Signs Temp Pulse Resp BP 10/04/19 19:20 104 H 140/89 10/04/19 17:38 98 H 159/96 H 10/04/19 17:28 93 H 150/85 H 10/04/19 17:18 96 H 132/81 10/04/19 17:12 94 H 18 139/91 10/04/19 17:08 94 H 139/91 10/04/19 16:58 104 H 130/95 10/04/19 16:48 95 H 143/89 H 10/04/19 16:37 36.7 C 95 H 20 153/89 H
[2019-10-04] MEDS ORDERED: NIFEdipine 10 MG CAP PO SCH ×2 (20:00→21:00)
[2019-10-04] MEDS: FERROUS SULFATE 325 MG TAB PO SCH (20:02)
[2019-10-04] MEDS ORDERED: PROMETHAZINE HCL 25 MG TAB PO ONE (22:11)
[2019-10-04] MEDS ORDERED: OXYCODONE/ACETAMINOPHEN 5mg/325mg TAB PO STA (22:11)
[2019-10-04] MEDS ORDERED: MAGNESIUM OXIDE 400 MG TAB PO SCH (22:15)
--- NOTE | 2019-10-04 22:16 | Obstetrical Progress Note ---
Date of Service October 04, 2019 Assessment & Plan Admission and Anticipated Discharge Date Admission Date: October 04, 2019 Subjective Patient is reevaluated She feels rectal pressure with cramping CHRIS started again after the 2nd dose of Procardia Nausea is better She states she gets frequent migraines and takes magnesium for prophylaxis Reports goof FM's Vital Signs Temp Pulse Resp BP 10/04/19 21:09 93 H 128/69 10/04/19 19:20 104 H 140/89 10/04/19 19:17 36.8 C 20 10/04/19 17:38 98 H 159/96 H 10/04/19 17:28 93 H 150/85 H 10/04/19 17:18 96 H 132/81 10/04/19 17:12 94 H 18 139/91 10/04/19 17:08 94 H 139/91 10/04/19 16:58 104 H 130/95 10/04/19 16:48 95 H 143/89 H 10/04/19 16:37 36.7 C 95 H 20 153/89 H VE: 2/50%/-2, unchanged FHR reactive [place]: mild irregular ctxs, unable to palpate ctx when she felt crampy Plan to observe, monitor, diet, magnesium oxide, percoset and phenergan for CHRIS, Procardia XR All questions were answered Results & Data ([facility]) Vital Signs (Past 12 Hours) Vital Signs Temp Pulse Resp BP 10/04/19 21:09 93 H 128/69 10/04/19 19:20 104 H 140/89 10/04/19 19:17 36.8 C 20 10/04/19 17:38 98 H 159/96 H 10/04/19 17:28 93 H 150/85 H 10/04/19 17:18 96 H 132/81 10/04/19 17:12 94 H 18 139/91 10/04/19 17:08 94 H 139/91 10/04/19 16:58 104 H 130/95 10/04/19 16:48 95 H 143/89 H 10/04/19 16:37 36.7 C 95 H 20 153/89 H
[2019-10-05] MEDS: LACTATED RINGER'S 1,000 ML IV SCH ×2 (01:00→06:30)
[2019-10-05] MEDS: NIFEdipine EXTENDED REL 30 MG TABCR PO SCH ×2 (01:09→08:36)
[2019-10-05] MEDS ORDERED: TERBUTALINE SULFATE 1 MG/ML VIAL SQ ONE (06:32)
--- NOTE | 2019-10-05 06:32 | Obstetrical Progress Note ---
Date of Service October 05, 2019 Assessment & Plan Admission and Anticipated Discharge Date Admission Date: October 04, 2019 Subjective Patient is reevaluated She states she slept for only 30 minutes, cramping was better until about 2 hours ago and started again, about every 10-15 minutes some are very painful and she needs to breath through them Recevied Procardia XR at 1 am No LOF/VB +FM's FHR reactive [place]: irritable, irregular mild uterine activity, palpated one moderate intensity VE: cervix is unchanged, 2/ 50%/ -2 VSS Afebrile Discussed single dose of terbutaline with possible side effects and she accepted Continue to monitor Results & Data ([facility]) Vital Signs (Past 12 Hours) Vital Signs Temp Pulse Resp BP 10/05/19 00:00 36.9 C 20 10/04/19 21:09 93 H 128/69 10/04/19 19:20 104 H 140/89 10/04/19 19:17 36.8 C 20
[2019-10-05] MEDS: FERROUS SULFATE 325 MG TAB PO SCH (08:36)
[2019-10-05] MEDS ORDERED: PRENATAL VITAMIN 1 TAB PO SCH (09:00)
--- NOTE | 2019-10-05 10:13 | Obstetrical Progress Note ---
Date of Service October 05, 2019 Assessment & Plan Admission and Anticipated Discharge Date Admission Date: October 04, 2019 Subjective pt doing well No ctx RTC at 1800Hrs for 2nd dose of BMTX pt disch with instruction Results & Data ([facility]) Vital Signs (Past 12 Hours) Vital Signs Temp Pulse Resp BP 10/05/19 10:11 110 H 131/73 10/05/19 09:23 114 H 132/77 10/05/19 07:37 115 H 148/73 H 10/05/19 07:23 123 H 141/75 H 10/05/19 07:05 36.8 C 126 H 20 134/70 10/05/19 06:54 106 H 138/70 10/05/19 06:49 98 H 139/75 10/05/19 00:00 36.9 C 20
--- NOTE | 2019-10-10 12:58 | Discharge Summary (DS) ---
CHIEF COMPLAINT: 1. Decreased movement. 2. Breech presentation. 3. Gestational hypertension. HISTORY OF PRESENT ILLNESS: This is a 29-year-old G2, P2, due date 10/29/2019, who was seen in labor and delivery on 10/04/2019 for decreased movement, breech presentation, and elevated blood pressure. She was worked up for PIH. Labs were unremarkable. The patient had no protein in her urine. PIH labs were normal including ALT, AST, LDH, and platelets. The patient was discharged home after prolonged monitoring. Plan was for patient to follow up in the office. PAST MEDICAL HISTORY: History of anxiety and depression. PAST SURGICAL HISTORY: History of dental surgery. ALLERGIES: No known allergies. SOCIAL HISTORY: The patient denies tobacco, drug or alcohol use. FAMILY HISTORY: Noncontributory. PHYSICAL EXAMINATION: GENERAL: Well-developed, well-nourished white female, . HEART: S1, S2, regular rhythm and rate. LUNGS: Clear to auscultation bilaterally. ABDOMEN: Nontender, nondistended, gravid. PELVIC: 2 cm dilated. Otherwise unremarkable. Bedside sonogram shows breech presentation. The patient is discharged home with instructions. The patient received 1 dose of betamethasone and was scheduled to receive second dose of betamethasone on 10/05/2019. The patient otherwise is scheduled to follow up in the office for continued care. ANUSHA
== END 2019-10-05 11:45 | disposition home or self-care (01) ==
LOC: 4S1 16:28 → OPB 16:28 → 4S1 16:30

== ENCOUNTER 2019-10-10 05:34 | Inpatient (IN) ==
[2019-10-10] MEDS ORDERED: LACTATED RINGER'S 1,000 ML IV SCH ×2 (05:45→10:15)
[2019-10-10] MEDS ORDERED: CITRIC ACID/SODIUM CITRATE 15 ML UDC PO SCH (06:00)
[2019-10-10] MEDS ORDERED: CEFAZOLIN 2000MG 2,000 MG/15 ML SYR IV SCH (06:00)
[2019-10-10 06:07] LABS: Basophils # (auto) 0.02 K/uL (0-0.2); Basophils % (auto) 0.2 %; Eosinophils # (auto) 0.14 K/uL (0-0.5); Eosinophils % (auto) 1.2 %; Hematocrit (blood only) 31.5 % (37-47); Immature Granulocytes # (auto) 0.24 K/uL (0.00-0.02); Immature Granulocytes % (auto) 2.1 %; Lymphocytes # (auto) 1.73 K/uL (1.2-3.4); Lymphocytes % (auto) 15.4 %; Mean Corpuscular Hemoglobin 28.7 pg (25-34); Mean Corpuscular Volume 90.3 fL (80-100); Mean Platelet Volume 11.4 fL (7.4-10.4); Monocytes # (auto) 1.07 K/uL (0.11-0.59); Monocytes % (auto) 9.5 %; Neutrophils # (auto) 8.03 K/uL (1.4-6.5); Neutrophils % (auto) 71.6 %; Nucleated RBC # (auto) 0.06 K/uL (0-0); Nucleated RBC % (auto) 0.5 %; Platelet Count 216 K/uL (130-400); RDW Standard Deviation 49.2 fL (36.4-46.3); Red Blood Count 3.49 M/uL (4.2-5.4); White Blood Count 11.23 K/uL (4.8-10.8)
[2019-10-10 06:13] LABS: Mean Corpuscular Hgb Conc 31.7 g/dL (32-36)
--- NOTE | 2019-10-10 06:55 | Anesthesiology Consultation ---
Date of Service October 10, 2019 Assessment & Plan Chart Review Chart Review: Acceptable Risk for Surgery and Patient NOT seen in Pre Admission Testing Consults Requested none ASA ASA2 Proposed Anesthesia Anesthesia Type: General and Spinal History Surgery Operation Date: 10/10/19 07:30 Proposed Procedures p Section in LD - Jame Calloway MD Height/Weight Height: 5 ft 5 in Weight: 90.265 kg Allergies Allergy/AdvReac Type Severity Reaction Status Date / Time No Known Allergies Allergy Unverified 12/02/17 02:25 Medications Home Medications Medication Instructions Recorded Confirmed Last Taken PNV cmb#95-ferrous fumarate-FA 1 tab PO DAILY 10/04/19 10/10/19 10/09/19 [] magnesium 240 mg PO DAILY 10/04/19 10/10/19 10/09/19 labetalol 100 mg PO BID #10 tab 10/07/19 10/10/19 10/09/19 Past Medical History Medical History Lumbar disc disease with radiculopathy (Chronic) Ulcer Ulcer removal of left lower lip Exercise / Class Metabolic Activity II 4-5 Yardwork/Stairs/Walk up hill Past Surgical History Surgical History H/O colonoscopy (Resolved) History of wisdom tooth extraction (Resolved) Past Anesthesia History No Hx of Anesthesia Complications and No Family Hx of Anesthesia Complications History of PONV No Hx of PONV and No Hx of Motion Sickness Social History Smoking Status: Former smoker tobacco type: cigarettes Hx Alcohol Use: No Hx Substance Use: No Physical Exam Vital Signs Last Vital Signs Temp 37.1 C 10/10/19 06:06 Pulse 77 10/10/19 06:07 Resp 18 10/10/19 06:06 BP 144/80 H 10/10/19 06:07 Testing Laboratory Results 10/10/19 05:51
[2019-10-10] MEDS ORDERED: fentaNYL citrate 100 MCG/2 ML VIAL ONE (07:28)
[2019-10-10] MEDS ORDERED: MoRPHine SULFATE PF 1 MG/ML 10 ML AMP/VIAL ONE (07:28)
[2019-10-10] MEDS ORDERED: OXYTOCIN 10 UNITS/ML VIAL ONE ×3 (07:28→09:56)
--- NOTE | 2019-10-10 08:04 | History & Physical Bridge Note ---
Date of Service October 10, 2019 History & Physical Bridge Note I have examined the patient, reviewed the History & Physical and in the interval since the performance of the History & Physical I have noted the following changes of clinical significance: no changes noted
[2019-10-10] MEDS ORDERED: OXYTOCIN 30 UNITS/500 ML BAG IV PRN (08:37)
[2019-10-10] MEDS ORDERED: DEXAMETHASONE SOD INJ 4 MG/ML VIAL ONE (09:23)
[2019-10-10] MEDS ORDERED: ONDANSETRON INJ 2 MG/ML 2 ML VIAL ONE (09:23)
[2019-10-10] MEDS ORDERED: PHENYLEPHRINE 100MCG/ML 5ML SYR ONE (09:25)
[2019-10-10] MEDS ORDERED: OXYTOCIN 10 UNITS/ML VIAL IM ONE (09:28)
[2019-10-10] MEDS ORDERED: miSOPROStoL 200 MCG TAB ONE (09:45)
[2019-10-10] MEDS ORDERED: miSOPROStoL 200 MCG TAB PR ONE (09:46)
[2019-10-10] MEDS ORDERED: LACTATED RINGER'S 500 ML IV PRN (10:02)
[2019-10-10] MEDS ORDERED: NALOXONE HCL 1 MG in SODIUM CHLORIDE 0.9% 1000ML 1,000 ML IV PRN (10:02)
[2019-10-10] MEDS ORDERED: DiphenhydrAMINE HCL 50 MG/ML VIAL IV PRN (10:02)
[2019-10-10] MEDS ORDERED: ePHEDrine sulfate 50 MG/ML AMP IV PRN (10:02)
[2019-10-10] MEDS ORDERED: NALOXONE HCL 0.4 MG/1 ML VIAL/CARP IV PRN (10:02)
[2019-10-10] MEDS ORDERED: NALBUPHINE HCL INJ 10 MG/ML AMP IV PRN (10:02)
[2019-10-10] MEDS ORDERED: NALOXONE HCL 0.08 MG in SYRINGE 1.8 ML IV PRN (10:02)
[2019-10-10] MEDS ORDERED: ONDANSETRON INJ 2 MG/ML 2 ML VIAL IV PRN ×2 (10:02→10:03)
[2019-10-10] MEDS ORDERED: PROMETHAZINE HCL 25 MG in SODIUM CHLORIDE 0.9% 50 ML IV PRN (10:02)
[2019-10-10] MEDS ORDERED: MoRPHine SULFATE PF 1 MG/ML 10 ML AMP/VIAL INT SPINAL ONE (10:02)
[2019-10-10] MEDS ORDERED: BENZOCAINE 20% AER SPR 82.5 GM CAN EXT PRN (10:03)
[2019-10-10] MEDS ORDERED: DIPHTHERIA/TETANUS/PERTUSSIS 0.5 ML SYR/VIAL IM ONE (10:03)
[2019-10-10] MEDS ORDERED: SENNA 8.6 MG TAB PO PRN (10:03)
[2019-10-10] MEDS ORDERED: HYDROCORTISONE ACETATE 25 MG SUPP PR PRN (10:03)
[2019-10-10] MEDS ORDERED: SUPERCREAM 0.870% 15 GM JAR EXT PRN (10:03)
[2019-10-10] MEDS ORDERED: MAGNESIUM HYDROXIDE SUSP 30 ML UDC PO PRN (10:03)
--- NOTE | 2019-10-10 10:03 | Post Operative Brief Note ---
Immediate Post Op Note v1 Date of Surgery October 10, 2019 Pre & Post Diagnosis Operation Date: 10/10/19 07:30 Pre-Op Diagnosis: Breech; Gestational Hypertension Post-Op Diagnosis: Same; Delivery of a live male child at 0915 I identified the patient and participated in the time-out.: Yes Procedure Operation Date: 10/10/19 07:30 Actual Procedures p Section in LD - Jame Calloway MD Surgeon Jame Calloway MD Asbestos Worker Helper dr cabral Estimated Blood Loss 600 Findings Consistent with Post-Op Diagnosis Drains Arriaga Catheter
[2019-10-10] MEDS ORDERED: DC INTRASPINAL MORPHINE SCH (10:15)
[2019-10-10] MEDS ORDERED: NO NARCOTICS OR SEDATIVES SCH (10:15)
[2019-10-10] MEDS ORDERED: SODIUM CHLORIDE 0.9% 1000ML 1,000 ML IV SCH (10:15)
[2019-10-10] MEDS ORDERED: OXYTOCIN 20 UNITS in LACTATED RINGER'S 1,000 ML IV SCH (10:15)
[2019-10-10] MEDS: KETOROLAC 30 MG/ML VIAL IV PRN ×2 (11:16→22:27)
--- NOTE | 2019-10-10 11:58 | Operative Report (OR) ---
DATE OF OPERATION: 10/10/2019 PREOPERATIVE DIAGNOSES: 1. at 37+ weeks. 2. Gestational hypertension. 3. Breech presentation. POSTOPERATIVE DIAGNOSES: 1. at 37+ weeks. 2. Gestational hypertension. 3. Breech presentation. PROCEDURE: Primary section. SURGEON: Jame Calloway MD. BANKING PIN ADJUSTER: Dolores Anguiano MD. ESTIMATED BLOOD LOSS: 600 mL. INTRAVENOUS FLUIDS: 1750 mL. URINE OUTPUT: 550 mL of clear urine at the end of procedure. FINDINGS: Live in reyna breech presentation. is delivered without difficulty. Uterus, tubes, and adnexa appeared grossly normal. COMPLICATIONS: None. DRAINS: Arriaga catheter. DISPOSITION: Stable to recovery room. ANESTHESIA: Spinal. PATHOLOGY: Placenta. DESCRIPTION OF PROCEDURE: The patient was taken to the operating room where she was prepped in the usual sterile fashion. Timeout was called. A Pfannenstiel incision was made with a scalpel and carried down to the fascia. Fascia was incised in the midline and extended laterally on both sides using Metzenbaum scissors. The fascia was dissected off the rectus abdominus muscle superiorly and inferiorly. Rectus abdominis was identified and peritoneum was identified as well. Abdomen was entered sharply. Findings of the abdomen is as dictated above. Vesicouterine peritoneum was sharply dissected off the lower uterine segment. A low transverse incision was made and extended laterally on both sides. Breech maneuvers done and the infant is delivered without difficulty. Cord was cut and clamped and was handed to the pediatric team. Placenta was manually removed. Uterus was exteriorized and cleared of all clots and debris. Uterus was closed with Vicryl in 2 layers. There was good hemostasis post-closure. Vesicouterine peritoneum was approximated with plain suture. Rectus abdominus was put together with 3 [id number] using plain suture. Fascia was closed in a running fashion with Vicryl stitch. SubQ was reapproximated with plain suture and skin was closed with monik. All instruments were removed from the abdomen including retractors and accounted for x2. Baby and mother are doing well in recovery. I attest to the content of the Intraoperative Record and any orders documented therein. Any exception s are noted below.
[2019-10-10] MEDS: SIMETHICONE 80 MG CHEW PO SCH ×3 (13:29→19:52)
--- NOTE | 2019-10-10 15:31 | Anesthesiology Progress Note ---
Date of Service October 10, 2019 Anesthesia Post Procedure Vital Signs Vital Signs: Temp Pulse Pulse Resp BP BP Pulse Ox 10/10/19 14:12 18 98 10/10/19 13:22 18 95 10/10/19 12:25 36.7 C 75 18 137/87 95 10/10/19 12:22 81 97 10/10/19 12:21 81 94 10/10/19 12:17 73 97 10/10/19 12:14 67 135/83 10/10/19 12:13 70 91 10/10/19 12:12 68 93 10/10/19 12:08 53 L 92 10/10/19 12:07 52 L 96 10/10/19 12:04 57 L 151/84 H 10/10/19 12:02 36.7 C 73 18 97 10/10/19 12:01 61 92 10/10/19 11:57 72 97 10/10/19 11:55 66 94 10/10/19 11:54 56 L 140/70 10/10/19 11:52 70 98 10/10/19 11:47 78 99 10/10/19 11:45 69 173/85 H 10/10/19 11:42 59 L 97 10/10/19 11:40 77 92 10/10/19 11:37 91 H 98 10/10/19 11:34 56 L 165/72 H 10/10/19 11:32 60 99 10/10/19 11:30 36.7 C 18 99 10/10/19 11:27 60 93 10/10/19 11:24 77 151/98 H 10/10/19 11:22 100 H 100 10/10/19 11:17 66 98 10/10/19 11:14 63 166/106 H 10/10/19 11:12 97 H 99 10/10/19 11:07 68 96 10/10/19 11:04 57 L 150/98 H 10/10/19 11:03 51 L 94 10/10/19 11:02 63 96 10/10/19 11:00 36.6 C 20 93 10/10/19 10:57 65 93 10/10/19 10:56 52 L 94 10/10/19 10:54 63 146/90 H 10/10/19 10:52 66 97 10/10/19 10:50 36.4 C L 16 95 10/10/19 10:47 67 97 10/10/19 10:44 52 L 142/84 H 10/10/19 10:42 60 98 10/10/19 10:40 18 97 10/10/19 10:38 54 L 93 10/10/19 10:37 62 98 10/10/19 10:34 55 L 151/83 H 10/10/19 10:32 65 99 10/10/19 10:30 36.4 C L 18 97 10/10/19 10:27 69 96 10/10/19 10:26 68 140/83 10/10/19 10:22 65 99 10/10/19 10:20 18 98 10/10/19 10:17 70 98 10/10/19 10:15 122 H 103/56 L 10/10/19 10:12 67 98 10/10/19 10:10 16 98 10/10/19 10:07 73 94 10/10/19 10:04 70 131/60 93 10/10/19 10:02 71 99 10/10/19 10:00 36.6 C 16 96 10/10/19 07:06 75 144/90 H 10/10/19 07:05 36.8 C 78 18 157/99 H 10/10/19 06:07 77 144/80 H 10/10/19 06:06 37.1 C 74 18 146/84 H 10/10/19 05:57 74 146/84 H 10/10/19 05:46 78 141/92 H Pain Intensity Abdomen: Pain Intensity: 5 Transfer of Care Handoff Completed per policy Notes Mental Status: alert / awake / arousable Patient Amnestic to Procedure: Yes Nausea / Vomiting: adequately controlled Pain: adequately controlled Airway Patency, RR, SpO2: stable & adequate BP & HR: stable & adequate Hydration State: stable & adequate Neuraxial Anesthesia: was administered and sensory block is resolving Anesthetic Complications: no major complications apparent
[2019-10-10] MEDS: DOCUSATE SODIUM 100 MG CAP PO SCH (19:52)
[2019-10-11] MEDS: KETOROLAC 30 MG/ML VIAL IV PRN (04:00)
[2019-10-11] MEDS ORDERED: DiphenhydrAMINE HCL 50 MG/ML VIAL IV PRN (04:02)
[2019-10-11] MEDS ORDERED: PROMETHAZINE HCL 25 MG in SODIUM CHLORIDE 0.9% 50 ML IV PRN (04:02)
[2019-10-11 06:41] LABS: Basophils # (auto) 0.02 K/uL (0-0.2); Basophils % (auto) 0.1 %; Eosinophils # (auto) 0.07 K/uL (0-0.5); Eosinophils % (auto) 0.5 %; Hematocrit (blood only) 29.4 % (37-47); Hemoglobin 9.3 g/dL (12.0-16.0); Immature Granulocytes # (auto) 0.16 K/uL (0.00-0.02); Immature Granulocytes % (auto) 1.1 %; Lymphocytes # (auto) 2.32 K/uL (1.2-3.4); Lymphocytes % (auto) 15.3 %; Mean Corpuscular Hemoglobin 28.6 pg (25-34); Mean Corpuscular Hgb Conc 31.6 g/dL (32-36); Mean Corpuscular Volume 90.5 fL (80-100); Mean Platelet Volume 11.2 fL (7.4-10.4); Monocytes # (auto) 1.13 K/uL (0.11-0.59); Monocytes % (auto) 7.5 %; Neutrophils # (auto) 11.45 K/uL (1.4-6.5); Neutrophils % (auto) 75.5 %; Platelet Count 201 K/uL (130-400); RDW Standard Deviation 49.9 fL (36.4-46.3); Red Blood Count 3.25 M/uL (4.2-5.4); White Blood Count 15.15 K/uL (4.8-10.8)
--- NOTE | 2019-10-11 07:49 | Obstetrical Progress Note ---
Date of Service October 11, 2019 Assessment & Plan Admission and Anticipated Discharge Date Admission Date: October 10, 2019 Subjective Patient is seen and examined. She feels well, no complaints. Pain is under control with oral meds. Ambulating without dizziness Voiding without difficulty Tolerating regular diet with out N&V Flatus + BM neg Bleeding is minimal No fever/ chills/ CP/ SOB/ N&V/ Leg pain Breast feeding without problems Vital Signs Temp Pulse Pulse Resp BP BP Pulse Ox 10/11/19 04:02 37.1 C 80 16 133/85 98 10/11/19 03:00 18 98 10/11/19 02:00 16 96 10/11/19 01:00 18 96 10/11/19 00:00 18 98 10/10/19 23:00 36.8 C 80 16 137/87 97 10/10/19 21:45 18 98 10/10/19 20:40 16 96 10/10/19 19:45 37.0 C 90 16 129/80 95 10/10/19 18:10 18 98 10/10/19 17:13 20 96 10/10/19 16:10 18 97 10/10/19 15:16 36.8 C 74 18 146/87 H 97 10/10/19 14:12 18 98 10/10/19 13:22 18 95 10/10/19 12:25 36.7 C 75 18 137/87 95 10/10/19 12:22 81 97 10/10/19 12:21 81 94 10/10/19 12:17 73 97 10/10/19 12:14 67 135/83 10/10/19 12:13 70 91 10/10/19 12:12 68 93 10/10/19 12:08 53 L 92 10/10/19 12:07 52 L 96 10/10/19 12:04 57 L 151/84 H 10/10/19 12:02 36.7 C 73 18 97 10/10/19 12:01 61 92 10/10/19 11:57 72 97 10/10/19 11:55 66 94 10/10/19 11:54 56 L 140/70 10/10/19 11:52 70 98 10/10/19 11:47 78 99 10/10/19 11:45 69 173/85 H 10/10/19 11:42 59 L 97 10/10/19 11:40 77 92 10/10/19 11:37 91 H 98 10/10/19 11:34 56 L 165/72 H 10/10/19 11:32 60 99 10/10/19 11:30 36.7 C 18 99 10/10/19 11:27 60 93 10/10/19 11:24 77 151/98 H 10/10/19 11:22 100 H 100 10/10/19 11:17 66 98 10/10/19 11:14 63 166/106 H 10/10/19 11:12 97 H 99 10/10/19 11:07 68 96 10/10/19 11:04 57 L 150/98 H 10/10/19 11:03 51 L 94 10/10/19 11:02 63 96 10/10/19 11:00 36.6 C 20 93 10/10/19 10:57 65 93 10/10/19 10:56 52 L 94 10/10/19 10:54 63 146/90 H 10/10/19 10:52 66 97 10/10/19 10:50 36.4 C L 16 95 10/10/19 10:47 67 97 10/10/19 10:44 52 L 142/84 H 10/10/19 10:42 60 98 10/10/19 10:40 18 97 10/10/19 10:38 54 L 93 10/10/19 10:37 62 98 10/10/19 10:34 55 L 151/83 H 10/10/19 10:32 65 99 10/10/19 10:30 36.4 C L 18 97 10/10/19 10:27 69 96 10/10/19 10:26 68 140/83 10/10/19 10:22 65 99 10/10/19 10:20 18 98 10/10/19 10:17 70 98 10/10/19 10:15 122 H 103/56 L 10/10/19 10:12 67 98 10/10/19 10:10 16 98 10/10/19 10:07 73 94 10/10/19 10:04 70 131/60 93 10/10/19 10:02 71 99 10/10/19 10:00 36.6 C 16 96 Intake and Output 10/10/19 10/11/19 10/11/19 22:59 06:59 14:59 Intake Total 1001 2340 / 3342 Output Total 125 / 2185 1760 / 2185 Balance 877 / 1157 580 / 1157 Intake: IV 1001 Lr 1,000 ml @ 125 mls/hr IV . 999 / 999 Q8H KEENA Rx#:[id number] Pitocin 20 Units In Lr 1,000 ml 1001 @ 125 mls/hr IV .Q8H1M KEENA Rx# :[id number] Oral 1340 / 1340 Output: Urine Amount (Catheter) 125 2185 1760 / 2185 Arriaga/Indwelling 125 / 2185 1760 / 2185 Lab Results 10/10/19 10/10/19 10/11/19 Range/Units 05:51 05:51 06:29 WBC 11.23 H 15.15 H (4.8-10.8) K/uL RBC 3.49 L 3.25 L (4.2-5.4) M/uL Hgb 10.0 L 9.3 L (12.0-16.0) g/dL Hct 31.5 L 29.4 L (37-47) % MCV 90.3 90.5 (80-100) fL MCH 28.7 28.6 (25-34) pg MCHC 31.7 L 31.6 L (32-36) g/dL RDW Std Deviation 49.2 H 49.9 H (36.4-46.3) fL RDW Coeff of Claudia 15.0 H 15.0 H (11.5-14.5) % Plt Count 216 201 (130-400) K/uL MPV 11.4 H 11.2 H (7.4-10.4) fL Immature Gran % (Auto) 2.1 1.1 % Neut % (Auto) 71.6 75.5 % Lymph % (Auto) 15.4 15.3 % [place] % (Auto) 9.5 7.5 % Eos % (Auto) 1.2 0.5 % Baso % (Auto) 0.2 0.1 % Neut # (Auto) 8.03 H 11.45 H (1.4-6.5) K/uL Lymph # (Auto) 1.73 2.32 (1.2-3.4) K/uL [place] # (Auto) 1.07 H 1.13 H (0.11-0.59) K/uL Eos # (Auto) 0.14 0.07 (0-0.5) K/uL Baso # (Auto) 0.02 0.02 (0-0.2) K/uL Immature Gran # (Auto) 0.24 H 0.16 H (0.00-0.02) K/uL Absolute Nucleated RBC 0.06 H (0-0) K/uL Nucleated RBC % (auto) 0.5 % Blood Type A Negative Antibody Screen NEGATIVE PE: General: Alert, orientedx3, NAD CVS: S1S2 RRR Lungs; CTAB Abd: soft, NT, ND, BS+, fundus firm, below Umbilicus Incision: Dressing, Clean, dry, intact Perineum intact, Lochia rubra minimal Ext; NT, no edema AP: 29 yo s/p C Section, pod# 1 VSS Afebrile doing well Continue routine postop care Encourage ambulation, PO intake All questions were answered Desires D/C home tomorrow Results & Data ([facility]) Vital Signs (Past 12 Hours) Vital Signs Temp Pulse Resp BP Pulse Ox 10/11/19 04:02 37.1 C 80 16 133/85 98 10/11/19 03:00 18 98 10/11/19 02:00 16 96 10/11/19 01:00 18 96 10/11/19 00:00 18 98 10/10/19 23:00 36.8 C 80 16 137/87 97 10/10/19 21:45 18 98 10/10/19 20:40 16 96
[2019-10-11] MEDS: FERROUS SULFATE 325 MG TAB PO SCH (08:45)
[2019-10-11] MEDS: DOCUSATE SODIUM 100 MG CAP PO SCH ×2 (08:45→20:49)
[2019-10-11] MEDS: PRENATAL VITAMIN 1 TAB PO SCH (08:46)
[2019-10-11] MEDS: SIMETHICONE 80 MG CHEW PO SCH ×4 (08:46→20:49)
[2019-10-11] MEDS: ACETAMINOPHEN 325 MG TAB PO PRN ×2 (10:35→14:18)
[2019-10-11] MEDS: IBUPROFEN 600 MG TAB PO PRN ×3 (10:36→17:59)
[2019-10-11] MEDS ORDERED: bisacodyL 5 MG TABEC PO SCH (20:00)
[2019-10-11] MEDS: OXYCODONE/ACETAMINOPHEN 5mg/325mg TAB PO PRN (20:49)
[2019-10-12] MEDS: OXYCODONE/ACETAMINOPHEN 5mg/325mg TAB PO PRN ×2 (00:07→08:35)
[2019-10-12] MEDS: IBUPROFEN 600 MG TAB PO PRN ×2 (00:08→08:37)
[2019-10-12 05:59] LABS: Hematocrit (blood only) 28.7 % (37-47); Hemoglobin 9.2 g/dL (12.0-16.0)
[2019-10-12] MEDS: SIMETHICONE 80 MG CHEW PO SCH (08:35)
[2019-10-12] MEDS: DOCUSATE SODIUM 100 MG CAP PO SCH (08:35)
[2019-10-12] MEDS: FERROUS SULFATE 325 MG TAB PO SCH (08:35)
[2019-10-12] MEDS: PRENATAL VITAMIN 1 TAB PO SCH (08:35)
--- NOTE | 2019-10-12 08:58 | Obstetrical Progress Note ---
Date of Service October 12, 2019 Assessment & Plan (1) delivery delivered: C/sec day #2 Pt doing well Pt wishes to be discharged today d/c home with instructions Results & Data Vital Signs (Past 12 Hours) Vital Signs Temp Pulse Resp BP 10/11/19 23:55 36.8 C 82 18 147/89 H
[2019-10-12] MEDS ORDERED: bisacodyL 10 MG SUPP PR PRN (10:03)
--- NOTE | 2019-10-12 10:57 | Discharge Summary (DS) ---
NOTICE TO RECEIVING LIBERTARIAN/AGENCY This information is strictly Confidential and protected under [place] law. [place] law prohibits you from making any further disclosure of this information unless further disclosure is expressly permitted by the written consent of the person to whom it pertains or is authorized by law. A general authorization for the release of medical or other information is not sufficient for this purpose. Hospital accepts no responsibility if the information is made available to any other person, INCLUDING THE PATIENT. DATE OF DISCHARGE: 10/12/2019 HISTORY OF PRESENT ILLNESS: This is a 29-year-old G2, P2 with due date of 10/29/2019 who was admitted on 10/10/2019 for scheduled section. The patient underwent section because of the following 1. Infant was breech. 2. The patient was gestational hypertension and was past 37 weeks. Surgery was unremarkable. Details of surgery is in the surgical note as well as pediatric information respectively. The patient delivered a live infant via section and did well operatively. Postop day 1 and 2 was also unremarkable. Postop day 1, the patient met all milestones, able to tolerate p.o. food and meds. On postop day 2, which is 10/12/2019, patient continued to improve and wished to be discharged home. At time of discharge she was tolerating food and medication, able to ambulate without any problems. The patient had stable vitals. PAST MEDICAL HISTORY: The patient has a history of anxiety and depression. PAST SURGICAL HISTORY: The patient had some dental surgery in the past. ALLERGIES: No known drug allergies. SOCIAL HISTORY: The patient denies tobacco, drug or alcohol use. FAMILY HISTORY: Noncontributory. REVIEW OF SYSTEMS: Negative except as dictated in HPI. VITAL SIGNS: Blood pressure is 147/89, pulse is 82, respirations 16, temperature is 36.8. LABORATORY DATA: Hemoglobin this morning is 9.2, hematocrit is 28.7. PHYSICAL EXAMINATION: GENERAL: Well-developed, well-nourished white female in no acute distress. HEART: S1, S2, regular rhythm and rate. LUNGS: Clear to auscultation bilaterally. ABDOMEN: Nontender, nondistended. Incision is clean, dry and intact with monik. EXTREMITIES: No cyanosis, clubbing or edema. CONDITION ON DISCHARGE: Stable. OPERATION: Primary section for breech presentation. DISCHARGE DIAGNOSIS: Primary section. PLAN ON DISCHARGE: The patient is discharged home with instructions regarding activity, diet, followup appointment and medications.
== END 2019-10-12 12:30 | disposition home or self-care (01) | DRG 788 ==
LOC: 4S1 05:34 → 4S2 12:42